=== PATIENT | female | born 1980 | race Caucasian/White ===

== ENCOUNTER 2017-09-17 13:25 | Emergency (ER) | payer SELFPAY ==
[~2017-09-17] VITALS: Ht 167.6 cm; Wt 75.7 kg
[2017-09-17 13:37] VITALS: Ht 167.6 cm; Wt 75.7 kg
[2017-09-17 15:41] VITALS: BP 146/98
== END 2017-09-17 15:41 | disposition home or self-care (01) ==
LOC: ED 13:25
DX: S29.012A Strain of muscle and tendon of back wall of thorax, initial encounter (principal); S16.1XXA Strain of muscle, fascia and tendon at neck level, initial encounter; S39.012A Strain of muscle, fascia and tendon of lower back, initial encounter; Z88.6 Allergy status to analgesic agent; V49.9XXA Car occupant (driver) (passenger) injured in unspecified traffic accident, initial encounter; Y93.89 Activity, other specified; Y92.89 Other specified places as the place of occurrence of the external cause; Y99.8 Other external cause status